=== PATIENT | male | born 1960 | race Caucasian/White ===

== ENCOUNTER → 2018-06-21 09:32 | Outpatient (CLI) | payer BC, SELFPAY ==
[2018-06-21 09:39] LABS: Bacteria 0 SEEN /hpf (None Seen); Mucous, Urine 0 SEEN /hpf (<or=2+); Squamous Epithelial Cells - UA 0 SEEN /hpf (0-5)
[2018-06-21 12:09] LABS: Absolute Lymphocyte Count 1.15 X10^3/ul (0.83-4.51); Absolute Neutrophil Count 3.6 X10^3/uL (2.0-7.7); Basophil# 0.02 X10^3/uL; Basophil% 0.3 % (0-1); Eosinophils% 1.7 % (0-5); Hematocrit 44.6 % (40-54); Hemoglobin 14.8 g/dl (13.0-16.5); Lymphocyte # 1.15 X10^3/ul (4.0); Mean Corp Hgb Conc 33.2 g/gl (32-36); Mean Corpuscular Hgb 32.1 pg (27.0-32.0); Mean Corpuscular Volume 96.7 fL (80-94); Mean Platelet Vol. 10.8 fl (6.2-12.0); Monocyte# 0.78 X10^3/uL; Monocyte% 13.5 % (0-10); Neutrophil # 3.63 X10^3/uL (2.7-7.7); Neutrophil % 63.1 % (47-70); Platelet Count 310 K/mm3 (150-450); Red Blood Count 4.61 M/mm3 (4.6-6.2); White Blood Count 5.8 K/mm3 (4.4-11.0)
[2018-06-21 12:13] LABS: POSITIVE COUNT NO; POSITIVE DIFFERENTIAL NO; POSITIVE MORPHOLOGY NO
[2018-06-21 12:34] LABS: ALB/GLOB Ratio 1.1 RATIO (0.9-2.4); AST(SGOT) 15 U/L (15-37); Alanine Aminotransfer ALT/SGPT 42 U/L (16-61); Alkaline Phosphatase 79 U/L (45-117); Anion Gap 12 (5-15); BUN 10 mg/dL (7-18); BUN/Creat Ratio 10.8 RATIO (10-20); Calcium,Total 9.1 mg/dL (8.5-10.1); Chloride 100 mmol/L (98-107); Creatinine, Serum 0.93 mg/dL (0.70-1.30); EST Glomerular Filtration Rate 89 mL/min (>60); Est Glom Filt Rate - Afr Amer 107 mL/min (>60); Globulin 3.8 g/dL (2.2-4.2); Glucose 132 mg/dL (74-106); PSA,Total - Annual Screen 0.56 ng/mL (0.00-4.00); Potassium 4.3 mmol/L (3.5-5.1); Protein, Total 7.8 g/dL (6.4-8.2); Sodium Level 138 mmol/L (136-145); Thyroid Stim Hormone (TSH) 3.02 uIU/mL (0.358-3.74)
[2018-06-21 14:05] LABS: Color, Urine Yellow (Yellow); Glucose, Dipstick Normal (Normal); Ketone-Dipstick Negative (Negative); Leukocyte Esterase-Dipstick 25 /ul (Negative); Nitrite-Dipstick Negative (Negative); Occult Blood-Urine Negative /ul (Negative); Protein-Dipstick 15 mg/dl (Negative); Urine Bilirubin Dipstick Negative (Negative); Urine Clarity Clear (Clear); Urine Urobilinogen Normal (Normal); Urine pH 6.5 (5.0 - 8.0)
[2018-06-21 14:27] LABS: Microalbumin,Random Urine 53.2 mg/L (NO RANGE EST.); Microalbumin:Creatinine Ratio 36.7 mg/g CRE (<30 mg/g CRE)
[2018-06-21 15:18] LABS: Immature Platelet Fraction 1.8 % (1.0-7.9); RET-HE 34.3 pg (30-35); Reticulocyte Count 1.25 % (0.5-1.5)
[2018-06-21 17:55] LABS: Red Blood Cells-Urine 0-5 SEEN /hpf (0-5); White Blood Cells 0-5 SEEN /hpf (0-5)
[2018-06-23 12:07] LABS: CHOLESTEROL TOTAL 192 mg/dL (100-199); HDL-C 52 mg/dL (>39); HDL-P TOTAL 41.4 umol/L (>=30.5); SMALL LDL-P 1007 nmol/L (<=527); TRIGLYCERIDES 182 mg/dL (0-149)
[2018-06-25 10:38] LABS: LDL-C 104 mg/dL (0-99)
[2018-06-25 10:39] LABS: LDL SIZE 20.3 nm (>20.5); LDL-P 1615 nmol/L (<1000); LP-IR SCORE ** 75 (<=45)
== END ==
PROVIDERS: Family Provider Internal Medicine; PCP Internal Medicine; Visit Provider Internal Medicine
DX: E11.65 Type 2 diabetes mellitus with hyperglycemia (principal); Z12.5 Encounter for screening for malignant neoplasm of prostate
CPT/HCPCS: 36415; 80053; 80061; 81001; 82043; 82570; 83704; 84153; 84443; 85025; 85045; G0103

== ENCOUNTER → 2018-07-16 06:39 | Outpatient (CLI) | payer BC, SELFPAY ==
--- NOTE | 2018-07-17 16:10 | PFTCOMP ---
COMPLETE PULMONARY FUNCTION TEST INTERPRETATION Brief HPI: Patient is a 58 year old male, currently under the care of myself, who presents to [place] for complete pulmonary function tests secondary to diagnosis of CHF. Respiratory therapist reports good effort and reproducible results. Interpretation: Forced expiration spirometry shows no large airways obstructive ventilatory defect with an FEV1 of 77% predicted. There is no significant bronchodilator response by strict ATS criteria. Spirograms are of good quality and plateau slowly, indicating slowly emptying areas of the lungs. The respiratory flow volume loop shows decreased expiratory flow rates at high lung volumes consistent with small airways obstruction. Lung volumes by body plethysmography show a normal total lung capacity at 5.75 L, 89% predicted. All other lung volumes are within normal limits. Diffusion capacity by carbon monoxide is decreased at 54% predicted. The airway resistance is slightly elevated. Compared to previous pulmonary function tests from 08/31/2015, there has been a significant reduction in lung volumes and DLCO by 35% and 38% respectively. Impression: These poorly function tests show an isolated reduction of diffusing capacity consistent with a pulmonary vascular disorder. There has been significant changes compared to previous studies.
--- NOTE | 2018-07-17 16:13 | PFTCOMP_ITS ---
COMPLETE PULMONARY FUNCTION TEST INTERPRETATION Brief HPI: Patient is a 58 year old male, currently under the care of myself, who presents to [facility] for complete pulmonary function tests secondary to diagnosis of CHF. Respiratory therapist reports good effort and reproducible results. Interpretation: Forced expiration spirometry shows no large airways obstructive ventilatory defect with an FEV1 of 77% predicted. There is no significant bronchodilator response by strict ATS criteria. Spirograms are of good quality and plateau slowly, indicating slowly emptying areas of the lungs. The respiratory flow volume loop shows decreased expiratory flow rates at high lung volumes consistent with small airways obstruction. Lung volumes by body plethysmography show a normal total lung capacity at 5.75 L, 89% predicted. All other lung volumes are within normal limits. Diffusion capacity by carbon monoxide is decreased at 54% predicted. The airway resistance is slightly elevated. Compared to previous pulmonary function tests from 08/31/2015, there has been a significant reduction in lung volumes and DLCO by 35% and 38% respectively. Impression: These poorly function tests show an isolated reduction of diffusing capacity consistent with a pulmonary vascular disorder. There has been significant changes compared to previous studies.
== END ==
PROVIDERS: Family Provider Internal Medicine; PCP Internal Medicine; Referring Provider Internal Medicine Critical Care Medicine; Visit Provider Internal Medicine Critical Care Medicine
DX: I50.32 Chronic diastolic (congestive) heart failure (principal)
CPT/HCPCS: 94060; 94726; 94729

== ENCOUNTER → 2018-07-17 20:00 | Outpatient (CLI) | payer BC, SELFPAY | PROVIDERS: Family Provider Internal Medicine; PCP Internal Medicine; Referring Provider Internal Medicine Critical Care Medicine; Visit Provider Internal Medicine Critical Care Medicine | DX: G47.33 Obstructive sleep apnea (adult) (pediatric) (principal) | CPT/HCPCS: 95811 ==

== ENCOUNTER → 2019-01-15 15:00 | Outpatient (CLI) | payer BC, SELFPAY ==
[2018-08-27 14:54] VITALS: BMI 35.7
[2019-01-15 15:56] LABS: Absolute Lymphocyte Count 2.25 X10^3/ul (0.83-4.51); Absolute Neutrophil Count 7.2 X10^3/uL (2.0-7.7); Basophil# 0.02 X10^3/uL; Basophil% 0.2 % (0-1); Eosinophil# 0.06 X10^3/uL; Eosinophils% 0.6 % (0-5); Hematocrit 46.8 % (40-54); Hemoglobin 16.1 g/dl (13.0-16.5); Lymphocyte # 2.25 X10^3/ul (4.0); Lymphocyte % 21.1 % (19-41); Mean Corp Hgb Conc 34.4 g/gl (32-36); Mean Corpuscular Hgb 32.3 pg (27.0-32.0); Mean Platelet Vol. 10.5 fl (6.2-12.0); Monocyte# 1.03 X10^3/uL; Monocyte% 9.6 % (0-10); Neutrophil % 67.4 % (47-70); Platelet Count 332 K/mm3 (150-450); RBC Distribution Width CV 12.7 % (11.6-14.6); RBC Distribution Width SD 42.7 fl (35.1-43.9); Red Blood Count 4.98 M/mm3 (4.6-6.2); White Blood Count 10.7 K/mm3 (4.4-11.0)
[2019-01-15 16:12] LABS: Anion Gap 8 (5-15); BUN 9 mg/dL (7-18); BUN/Creat Ratio 11.1 RATIO (10-20); Calcium,Total 9.7 mg/dL (8.5-10.1); Chloride 102 mmol/L (98-107); Creatinine, Serum 0.81 mg/dL (0.70-1.30); EST Glomerular Filtration Rate 104 mL/min (>60); Est Glom Filt Rate - Afr Amer 126 mL/min (>60); Glucose 131 mg/dL (74-106); Potassium 4.4 mmol/L (3.5-5.1); Sodium Level 133 mmol/L (136-145)
[2019-01-15 16:59] LABS: POSITIVE COUNT NO; POSITIVE DIFFERENTIAL NO; POSITIVE MORPHOLOGY NO
== END ==
PROVIDERS: Family Provider Internal Medicine; PCP Internal Medicine; Referring Provider Nurse Practitioner Family; Visit Provider Nurse Practitioner Family
DX: I48.0 Paroxysmal atrial fibrillation (principal); I48.92 Unspecified atrial flutter; I50.30 Unspecified diastolic (congestive) heart failure
CPT/HCPCS: 36415; 80048; 85025

== ENCOUNTER 2019-01-15 16:13 | Emergency (ER) | payer BC, SELFPAY ==
[2018-08-27 14:54] VITALS: BMI 35.7
[2019-01-15] VITALS (9 sets, daily range): BP systolic 112–160; BP diastolic 72–120; PULSE 93–158; RESP 14–23; TEMP 36.9; O2SAT 95–98; BMI 37.9
--- NOTE | 2019-01-15 16:24 | EKG12_ITS ---
Test Reason : SVT Blood Pressure : / mmHG Vent. Rate : 156 BPM Atrial Rate : 312 BPM P-R Int : 000 ms QRS Dur : 088 ms QT Int : 308 ms P-R-T Axes : 000 023 083 degrees QTc Int : 496 ms Atrial flutter with 2:1 A-V conduction Abnormal ECG Confirmed by DELPHINE GRISSOM, DANIEL ([id number]), advertising editor DG PRESTON ([id number]) on 01/17/2019 9:18:45 AM Referred By: Maximus Guerra Confirmed By:DANIEL AKERS MD
[2019-01-15] MEDS: Adenosine 6 MG/2 ML Syringe 12 MG IV (16:49)
--- NOTE | 2019-01-15 17:26 | ED.VISSUMM ---
- ER Visit Summary Date of Service: 01/15/19 Chief Complaint: Palpitations History of Present Illness: The patient is a 58 M presenting with palpitations. Patient states this started last night. He woke up with continued symptoms. He denies chest pain or shortness of breath. He has a history of atrial dysrhythmias. He had an ablation a year ago. He is on Xarelto and Cardizem. He went to Dr. Chen's office and was sent to the ED for further evaluation. Physical Examination: Vitals are stable. Heart rate 158. Patient is afebrile. Alert no acute distress. HEENT exam is unremarkable. Neck is supple. Lungs are clear and equal bilaterally. Heart is regular and tachycardic. Abdomen is soft nontender nondistended. Extremities are unremarkable. Skin is warm and dry. No focal neurologic deficit. Remainder of exam is unremarkable. Emergency Department Course and Treatment: EKG atrial flutter with 2-1 AV conduction. Outpatient blood work showed CBC unremarkable, chemistries normal except for sodium 133, glucose 131. Discussed with Dr. Chen. Patient was initially given adenosine. His rate slowed and flutter waves were visible. His heart rate then returned to the 150s. He was consented for procedural sedation. He was given propofol. Synchronized cardioversion with 200 J was performed. Patient converted to sinus rhythm. Repeat EKG is sinus rhythm rate of 94. Discussed with Dr. Chen patient will follow-up in the office. Patient is agreeable with this plan. Advised return to ED if worsening complaints. Disposition: Discharge home Impression: Atrial flutter, procedural sedation, synchronized cardioversion This note was generated with [employer] dictation software. It may contain incorrect words, spelling, and punctuation that were not noted in review of the chart prior to signing ED Disposition - Plan for ED Patient: Referrals: Kyra Cruz DO [Primary Care Provider] -
--- NOTE | 2019-01-15 17:31 | ED.DCSUM_ITS ---
- ER Visit Summary Date of Service: 01/15/19 Chief Complaint: Palpitations History of Present Illness: The patient is a 58 M presenting with palpitations. Patient states this started last night. He woke up with continued symptoms. He denies chest pain or shortness of breath. He has a history of atrial d ysrhythmias. He had an ablation a year ago. He is on Xarelto and Cardizem. He went to Dr. Chen's office and was sent to the ED for further evaluation. Physical Examination: Vitals are stable. Heart rate 158. Patient is afebrile. Alert no acute distress. HEENT exam is unremarkable. Neck is supple. Lungs are clear and equal bilaterally. Heart is regular and tachycardic. Abdomen is soft nontender nondistended. Extremities are unremarkable. Skin is warm and dry. No focal neurologic deficit. Remainder of exam is unremarkable. Emergency Department Course and Treatment: EKG atrial flutter with 2-1 AV conduction. Outpatient blood work showed CBC unremarkable, chemistries normal except for sodium 133, glucose 131. Discussed with Dr. Chen. Patient was initially given adenosine. His rate slowed and flutter waves were visible. His heart rate then returned to the 150s. He was consented for procedural sedation. He was given propofol. Synchronized cardioversion with 200 J was performed. Patient converted to sinus rhythm. Repeat EKG is sinus rhythm rate of 94. Discussed with Dr. Chen patient will follow-up in the office. Patient is agreeable with this plan. Advised return to ED if worsening complaints. Disposition: Discharge home Impression: Atrial flutter, procedural sedation, synchronized cardioversion This note was generated with [employer] dictation software. It may contain incorrect words, spelling, and punctuation that were not noted in review of the chart prior to signing ED Disposition - Plan for ED Patient: Referrals: Kyra Cruz DO [Primary Care Provider] -
--- NOTE | 2019-01-15 17:31 | ED.DEP ---
ED Disposition - Plan for ED Patient: Instructions: ED Paroxysmal Atrial Flutter Referrals: Kyra Cruz DO [Primary Care Provider] - Dionicio Chen MD [STAFF PHYSICIAN] -
--- NOTE | 2019-01-15 17:39 | EKG12_ITS ---
Test Reason : CARDIOVERSION Blood Pressure : / mmHG Vent. Rate : 094 BPM Atrial Rate : 094 BPM P-R Int : 140 ms QRS Dur : 080 ms QT Int : 334 ms P-R-T Axes : 039 033 061 degrees QTc Int : 417 ms Normal sinus rhythm Normal ECG Confirmed by DELPHINE GRISSOM, DANIEL ([id number]), editor at large DG PRESTON ([id number]) on 01/17/2019 9:19:05 AM Referred By: Maximus Guerra Confirmed By:DANIEL AKERS MD
== END 2019-01-15 17:47 | disposition home or self-care (01) ==
PROVIDERS: Emergency Provider Emergency Medicine; Family Provider Internal Medicine; PCP Internal Medicine
DX: I48.92 Unspecified atrial flutter (principal); I10 Essential (primary) hypertension; E78.00 Pure hypercholesterolemia, unspecified; Z79.02 Long term (current) use of antithrombotics/antiplatelets; Z79.899 Other long term (current) drug therapy
CPT/HCPCS: 92960; 93005; 96374; 99284; J7030; A4216; J0153

== ENCOUNTER 2019-05-09 14:37 | Emergency (ER) | payer BC, SELFPAY ==
[2019-05-08 13:05] VITALS: BMI 34.9
[2019-05-09 14:38] VITALS: BP 116/106; PULSE 155; RESP 17; TEMP 37.7; O2SAT 98; BMI 35.2
--- NOTE | 2019-05-09 14:53 | ED.RN ---
1438.. dr notified that pt from dr quiros in here and in room 1. hr 156. [id number]. tank charger informs physicians that pt is here
--- NOTE | 2019-05-09 14:57 | EKG12_ITS ---
Test Reason : POST CARDIOVERSION Blood Pressure : / mmHG Vent. Rate : 098 BPM Atrial Rate : 098 BPM P-R Int : 150 ms QRS Dur : 080 ms QT Int : 336 ms P-R-T Axes : 019 007 038 degrees QTc Int : 428 ms Normal sinus rhythm Septal infarct , age undetermined Abnormal ECG Confirmed by GARY CERVANTES ([id number]), newspaper or periodical editor LLUVIA WESLEY ([id number]) on 05/13/2019 1:21:40 PM Referred By: MANUEL Confirmed By:GARY CERVANTES
[2019-05-09 15:01] VITALS: BP 136/77; PULSE 152; RESP 12; O2SAT 96
--- NOTE | 2019-05-09 15:01 | ED.VIS.GEN ---
History of Present Illness Chief Complaint: Palpitations Informant: Patient Onset: Today Context: Sudden Onset Timing: Continuous Quality: Rapid heartbeat Location: Mid chest Current Severity: Mild Maximum Severity: Moderate Worsened by: Nothing Relieved by: Nothing Associated Symptoms: No associated symptoms Narrative: Patient is a middle-age male who presents with rapid heartbeat from Dr. Chen's office. He is on Xarelto. He has been [place] in the past. He has not had any to eat since noon. He has had nothing to drink since 1230. He denies allergy to egg products or soy products. He does have history of hypertension. Denies history of thyroid disease. He denies chest pain, dyspnea, dyspnea exertion. He denies orthopnea or PND. He denies swelling of his feet or legs. 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 (7) Pulmonary hypertension Status: Chronic (8) Pure hypercholesterolemia Status: Chronic (9) Type 2 diabetes mellitus Status: Chronic Past Medical History - Allergies and Home Meds Allergies/Adverse Reactions: Allergies lorazepam Allergy (Verified 05/09/19 14:38) Unknown niacin Allergy (Verified 05/09/19 14:38) Unknown Primary Care Physician: Ravin Granda MD [Primary Care Provider] - Prior records reviewed: Yes Lives: Alone Smoking Status: Former smoker Alcohol: Rare Drugs: None - Family History Paternal Family History: Family History (Last Reviewed 05/08/19 @ 13:07 by Argenis Akins) Father CAD (coronary artery disease) Myocardial infarction Mother Diabetes Brother Hypertension Other Breast cancer High cholesterol Skin cancer Family History: Reports: Heart Disease - Atrial Fibrillation, CAD, RI, PCI Review of Systems General: Denies: Chills, Fever, Sweats Eyes: Denies: Visual changes - bilaterally, Diplopia ENT: Denies: Bilateral ear pain, Rhinorrhea, Sore throat Cardiovascular: Reports: Palpitations, Heart racing Respiratory: Denies: Dyspnea, Cough, Dyspnea on exertion Gastrointestinal: Denies: Abdominal pain, Nausea, Vomiting, Diarrhea, Melena, Hematochezia Genitourinary: Denies: Dysuria, Hematuria, Frequency Musculoskeletal: Denies: Back pain, Extremity Pain Skin: Denies: Rash, Wounds Neurological: Denies: Headache, Weakness, Numbness Psych: Denies: Depression, Anxiety Hematologic: Denies: Easy bruising, Easy bleeding Allergy: Denies: Uticaria, Swelling of the mouth Physical Exam Vital Signs/Narrative: Vital Signs Temp Pulse Resp BP Pulse Ox 05/09/19 14:38 99.8 F H 155 H 17 116/106 H 98 Inital Vital Signs reviewed: Yes General: Well nourished, Well developed, No Acute Distress Head: Normocephalic, Atraumatic Eyes: Perrl, EOMI ENT: Moist mucous membranes, No rhinorrhea Neck: Supple, Nontender Cardiovascular: Regular rhythm, No murmurs, Normal S1, Tachycardia Respiratory: No distress, CTA bilaterally, Chest nontender Abdomen: Soft, Nontender, Nondistended, Normal bowel sounds Back: Nontender, Normal Inspection Extremities: Nontender, No edema Skin: Normal color, No rash Neurological: Alert, Oriented x3, Cranial nerves II-XII grossly intact, Normal Strength, Normal Sensation Psychological: Normal affect, Normal Mood Diagnostic/Tx/Re-eval Laboratory Results 05/09/19 05/09/19 14:45 14:45 WBC 10.8 RBC 5.25 Hgb 17.1 H Hct 49.8 MCV 94.9 H MCH 32.6 H MCHC 34.3 RDW Std Deviation 46.0 H RDW Coeff of Chuy 13.0 Plt Count 348 MPV 9.9 Sodium 136 Potassium 4.3 Chloride 102 Carbon Dioxide 24.0 Anion Gap 10 BUN 10 Creatinine 0.79 Estim Creat Clear Calc 103.96 Est GFR (MDRD) Af Amer 128 Est GFR (MDRD) Non-Af 106 BUN/Creatinine Ratio 12.6 Glucose 107 H Calcium 9.4 Troponin I < 0.015 - Rhythm Strip Rhythm Strip: Narrow complex tachycardia rate 152 Rate: 152 - EKG Initial EKG Interpretation: Atrial Flutter - Ventricular rate is 152. Decreased anterior force. QRS duration 90 ms. QT duration 330 ms. Martin is normal. Follow-up EKG Interpretation: Sinus Rhythm - Ventricular rate is 98. MN interval is 150 ms. QRS duration 80 ms. QT duration 336 ms. Martin is normal. There is decreased anterior force. Otherwise the EKG is unremarkable. - Medical Decision Making Patient presents with palpitations. He has been cardioverted in the past. His blood pressure is lower than normal. He has no other symptoms. Will obtain screening labs per Dr. Chen's request. Patient has been consented for procedural sedation and cardioversion. He was given opportunity ask questions. He had none. He states he has been cardioverted in the past x2. Procedures Procedure(s): 1. Patient was consented for deep procedural sedation using propofol. He was given obtained to ask questions. He states he has had this performed twice before. He denies allergy to egg or soy products. He does have history obstructive sleep apnea. 2. Patient was consented for cardioversion. He states he was cardioverted in December. 3. Patient initially received 80 mg of propofol followed by 20 mg of propofol. He was given an additional 70 mg of propofol. Once appropriate depth of anesthesia/unconsciousness was achieved he was successfully cardioverted with 150 J. Obtaining post cardioversion EKG. He did not become hypoxic during procedural sedation. 4. Total time for procedure 5 minutes, 1511?1516 ED Disposition - Plan for ED Patient: Disposition: Home or Assisted Living Diagnosis: Atrial flutter with rapid ventricular response Instructions: Atrial Flutter Referrals: Ravin Granda MD [Primary Care Provider] - Dionicio Chen MD [STAFF PHYSICIAN] - 5-7 Days
[2019-05-09 15:10] VITALS: BP 124/78; PULSE 149; RESP 26; O2SAT 94
[2019-05-09 15:10] LABS: Hematocrit 49.8 % (40-54); Hemoglobin 17.1 g/dL (13.0-16.5); Mean Corp Hgb Conc 34.3 g/dL (32-36); Mean Corpuscular Hgb 32.6 pg (27.0-32.0); Mean Corpuscular Volume 94.9 fL (80-94); Mean Platelet Vol. 9.9 fl (6.2-12.0); Platelet Count 348 K/mm3 (150-450); Red Blood Count 5.25 M/mm3 (4.6-6.2); White Blood Count 10.8 K/mm3 (4.4-11.0)
[2019-05-09 15:20] VITALS: BP 108/61; BP 115/62; PULSE 93; RESP 14; O2SAT 96
[2019-05-09 15:27] LABS: Anion Gap 10 (5-15); BUN 10 mg/dL (7-18); BUN/Creat Ratio 12.6 RATIO (10-20); Calcium,Total 9.4 mg/dL (8.5-10.1); Chloride 102 mmol/L (98-107); Creatinine, Serum 0.79 mg/dL (0.70-1.30); EST Glomerular Filtration Rate 106 mL/min (>60); Est Glom Filt Rate - Afr Amer 128 mL/min (>60); Estimated Creatinine Clearance 103.96 ml/min; Glucose 107 mg/dL (74-106); Potassium 4.3 mmol/L (3.5-5.1); Sodium Level 136 mmol/L (136-145)
[2019-05-09] MEDS: Propofol 200 MG/20 ML Vial IV BOLUS (15:49)
[2019-05-09 15:50] VITALS: BP 133/65; PULSE 82; RESP 18; O2SAT 97
--- NOTE | 2019-05-09 16:46 | EKG12_ITS ---
Test Reason : PALPITATIONS Blood Pressure : / mmHG Vent. Rate : 152 BPM Atrial Rate : 150 BPM P-R Int : 000 ms QRS Dur : 090 ms QT Int : 330 ms P-R-T Axes : 000 025 088 degrees QTc Int : 524 ms Supraventricular tachycardia Otherwise normal ECG Confirmed by GARY CERVANTES ([id number]), editor publications LLUVIA WESLEY ([id number]) on 05/13/2019 1:22:07 PM Referred By: JODI Confirmed By:GARY CERVANTES
[2019-05-09 16:51] VITALS: BP 126/65; PULSE 86; RESP 17; O2SAT 96
== END 2019-05-09 16:52 | disposition home or self-care (01) ==
PROVIDERS: Emergency Provider Emergency Medicine; Family Provider Internal Medicine; PCP Internal Medicine
DX: I48.92 Unspecified atrial flutter (principal); I11.0 Hypertensive heart disease with heart failure; I50.32 Chronic diastolic (congestive) heart failure; G47.33 Obstructive sleep apnea (adult) (pediatric); I27.20 Pulmonary hypertension, unspecified; E78.00 Pure hypercholesterolemia, unspecified; E11.9 Type 2 diabetes mellitus without complications; Z79.01 Long term (current) use of anticoagulants; Z79.84 Long term (current) use of oral hypoglycemic drugs; Z79.899 Other long term (current) drug therapy; Z87.891 Personal history of nicotine dependence
CPT/HCPCS: 80048; 84484; 85027; 92960; 93005; 99284; J7030; A4216

== ENCOUNTER → 2019-05-22 | Outpatient (CLI) | payer BC, SELFPAY ==
[2019-05-09 14:38] VITALS: BMI 35.2
[2019-05-22 10:23] LABS: AST(SGOT) 20 U/L (15-37); Alanine Aminotransfer ALT/SGPT 46 U/L (16-61); Albumin, Serum 3.8 g/dL (3.2-5.0); Alkaline Phosphatase 90 U/L (45-117); Bilirubin, Direct 0.17 mg/dL (0.00-0.30); Cholesterol 150 mg/dL (200); Globulin 3.7 g/dL (2.2-4.2); High Density Lipoprotein 45 mg/dL; Protein, Total 7.5 g/dL (6.4-8.2); Triglycerides 191 mg/dL; Very Low Density Lipoprotein 38 mg/dL (5-40)
== END | disposition home or self-care (01) ==
LOC: MTLAB 08:07
PROVIDERS: Family Provider Internal Medicine; PCP Internal Medicine; Referring Provider Internal Medicine Cardiovascular Disease; Visit Provider Internal Medicine Cardiovascular Disease
DX: E78.00 Pure hypercholesterolemia, unspecified (principal)
CPT/HCPCS: 36415; 80061; 80076

== ENCOUNTER → 2019-06-04 | Outpatient (CLI) | payer BC, SELFPAY ==
[2019-05-24 10:57] VITALS: BMI 34.5
--- NOTE | 2019-06-04 11:41 | STRESSREP_ITS ---
Stress Test Report Date: 06-04-19 Procedure: Exercise tolerance test/imaging study Indications: Chest pain; paroxysmal atrial fibrillation/flutter Consent: Per the patient Procedure: The patient exercised on a Rubén protocol for 7 minutes completing stage II and 1 minute of stage III achieving a peak heart rate of 140 bpm (87 % predicted maximal heart rate) with a peak blood pressure 198/74 mmHg and a peak MET capacity of 8 METs. The baseline ECG demonstrated normal sinus rhythm. The peak exercise ECG demonstrated no obvious ECG changes. There were no cardiac dysrhythmias pretest, during exercise, or recovery. The functional capacity was considered average. There was no complaint of chest discomfort during exercise or recovery. The examination was discontinued secondary to dyspnea. Impression: 1. Technically adequate (percent predicted maximal heart rate greater than 85%) exercise tolerance test 2. Peak exercise ECG with no obvious ECG changes 3. There were no cardiac dysrhythmias pretest, during exercise, or recovery 4. Nuclear images pending Myocardial perfusion imaging study: Technique: The patient was injected with 14.6 mCi of technetium 99m Cardiolite and subsequently rest SPECT Cardiolite nuclear imaging was obtained in the horizontal long, vertical long, and short axis views. The patient exercised on a Rubén protocol for 7 minutes completing stage II and 1 minute of stage III achieving a peak heart rate of 140 bpm (87 % predicted maximal heart rate) with a peak blood pressure 198/74 mmHg and a peak MET capacity of 8 METs. The patient was injected with 44.7 mCi of technetium 99m Cardiolite and subsequently stress SPECT Cardiolite nuclear imaging was obtained in the horizontal long, vertical long, and short axis views. A gated Cardiolite study at peak stress was obtained. Interpretation: Rest and stress SPECT Cardiolite nuclear imaging status post realignment, normalization, and attenuation correction, demonstrates the appearance of relative uniform tracer uptake and myocardial perfusion appearing within normal limits. There is end systolic thickening and brightening. The gated Cardiolite study demonstrates myocardial thickening and inward wall motion. The reported LVEF is 82 %. Impression: 1. Rest and stress SPECT Cardiolite nuclear imaging demonstrate relative uniform tracer uptake and myocardial perfusion appearing within normal limits. 2. The gated Cardiolite study reports an LVEF of 82 %. This note was generated with [employer] software. It may contain incorrect words, spelling, and punctuation that were not noted in checking the note before signing.
== END | disposition home or self-care (01) ==
LOC: CVS 06:19
PROVIDERS: Family Provider Internal Medicine; PCP Internal Medicine; Referring Provider Internal Medicine Cardiovascular Disease; Visit Provider Internal Medicine Cardiovascular Disease
DX: R07.9 Chest pain, unspecified (principal); I48.92 Unspecified atrial flutter
CPT/HCPCS: 78452; 93017; A9500; A4216

== ENCOUNTER → 2021-01-22 08:50 | Outpatient (CLI) | payer BC, SELFPAY ==
[2021-01-22 12:40] LABS: Absolute Lymphocyte Count 1.49 X10^3/uL (0.83-4.51); Absolute Neutrophil Count 4.3 X10^3/uL (2.0-7.7); Basophil# 0.03 X10^3/uL; Basophil% 0.4 % (0-1); Eosinophil# 0.14 X10^3/uL; Eosinophils% 2.1 % (0-5); Hematocrit 46.3 % (40-54); Hemoglobin 14.9 g/dL (13.0-16.5); Lymphocyte # 1.49 X10^3/ul (0.83-4.51); Lymphocyte % 21.9 % (19-41); Mean Corp Hgb Conc 32.2 g/dL (32-36); Mean Corpuscular Hgb 32.3 pg (27.0-32.0); Mean Corpuscular Volume 100.4 fL (80-94); Mean Platelet Vol. 10.4 fl (6.2-12.0); Monocyte# 0.76 X10^3/uL; Monocyte% 11.2 % (0-10); NRBC Flagged by Analyzer 0 % (0-5); Neutrophil # 4.28 X10^3/uL (2.7-7.7); Neutrophil % 62.9 % (47-70); Platelet Count 324 K/mm3 (150-450); RBC Distribution Width CV 12.4 % (11.6-14.6); RBC Distribution Width SD 45.9 fl (35.1-43.9); Red Blood Count 4.61 M/mm3 (4.6-6.2); White Blood Count 6.8 K/mm3 (4.4-11.0)
[2021-01-22 12:54] LABS: ALB/GLOB Ratio 1.2 RATIO (0.9-2.4); AST(SGOT) 20 U/L (15-37); Alanine Aminotransfer ALT/SGPT 45 U/L (16-61); Albumin, Serum 4.1 g/dL (3.2-5.0); Alkaline Phosphatase 84 U/L (45-117); Anion Gap 7 (5-15); BUN 10 mg/dL (7-18); BUN/Creat Ratio 12.6 RATIO (10-20); Calcium,Total 9.4 mg/dL (8.5-10.1); Chloride 100 mmol/L (98-107); Creatinine, Serum 0.79 mg/dL (0.70-1.30); EST Glomerular Filtration Rate 106 mL/min (>60); Est Glom Filt Rate - Afr Amer 128 mL/min (>60); Globulin 3.5 g/dL (2.2-4.2); Glucose 139 mg/dL (74-106); Protein, Total 7.6 g/dL (6.4-8.2); Sodium Level 135 mmol/L (136-145)
== END ==
PROVIDERS: PCP Internal Medicine; Referring Provider Internal Medicine; Visit Provider Internal Medicine
DX: I10 Essential (primary) hypertension (principal); E11.9 Type 2 diabetes mellitus without complications
CPT/HCPCS: 36415; 80053; 85025

== ENCOUNTER → 2021-01-26 08:30 | Outpatient (CLI) | payer BC, SELFPAY ==
[2021-01-26 13:05] LABS: Vitamin B12 451 pg/mL (211-911)
== END ==
PROVIDERS: PCP Internal Medicine; Referring Provider Internal Medicine; Visit Provider Internal Medicine
DX: D64.9 Anemia, unspecified (principal)
CPT/HCPCS: 36415; 82607

== ENCOUNTER → 2021-02-19 07:43 | Outpatient (CLI) | payer BC, SELFPAY ==
--- NOTE | 2021-02-19 07:46 | US_ITS ---
STUDY: ABDOMINAL ULTRASOUND - RIGHT UPPER QUADRANT REASON FOR VISIT: Male, 60 years old RUQ Pain x2 months TECHNIQUE: Ultrasound evaluation of the right upper quadrant was performed with real-time and static duron-scale imaging. TECHNICAL QUALITY: Adequate. COMPARISON: None. FINDINGS: Liver: The liver measures 23.97 cm. There is increased echogenicity consistent with fatty infiltration. The bile ducts are within normal limits. There is hepatic color flow. The direction of portal flow is hepatopetal. There is no demonstrated mass lesion. Gallbladder: Normal distended gallbladder. The gallbladder wall measures 2.8 mm. There is a negative sonographic Oquendo''s sign. There is no pericholecystic fluid. There are no gallstones. Common Bile Duct (C.B.D.): The common bile duct measures 2.7 mm. Pancreas: Normal size of the head, body and tail of the pancreas. There is increased echogenicity of the pancreas. There is no demonstrated pancreatic mass or cyst. Right Kidney: Normal size of the right kidney. The right kidney measures 13.3 x 6.5 x 6.2 cm. Normal renal cortex. The right cortex measures 2.1 cm. There is no demonstrated renal mass or cyst. There is no right hydronephrosis. US/Abdomen Limited IMPRESSION: Hepatomegaly with diffuse fatty alteration of the liver, no discrete lesion Sonographically normal gallbladder Nonspecific echogenic pancreas Electronically Signed: López Saenz MD at 8:52 EDT , Service support ,
== END ==
PROVIDERS: PCP Internal Medicine; Referring Provider Internal Medicine; Visit Provider Internal Medicine
DX: R10.11 Right upper quadrant pain (principal)
CPT/HCPCS: 76705

== ENCOUNTER → 2021-05-24 09:31 | Outpatient (CLI) | payer BC, SELFPAY ==
[2021-05-24 12:25] LABS: AST(SGOT) 23 U/L (15-37); Alanine Aminotransfer ALT/SGPT 50 U/L (16-61); Albumin, Serum 4.2 g/dL (3.2-5.0); Alkaline Phosphatase 88 U/L (45-117); Bilirubin, Direct 0.14 mg/dL (0.00-0.30); Cholesterol 184 mg/dL (200); Globulin 3.6 g/dL (2.2-4.2); High Density Lipoprotein 54 mg/dL; Protein, Total 7.8 g/dL (6.4-8.2); Triglycerides 193 mg/dL; Very Low Density Lipoprotein 39 mg/dL (5-40)
== END ==
PROVIDERS: PCP Internal Medicine; Referring Provider Internal Medicine Cardiovascular Disease; Visit Provider Internal Medicine Cardiovascular Disease
DX: E78.1 Pure hyperglyceridemia (principal); E78.00 Pure hypercholesterolemia, unspecified; E11.9 Type 2 diabetes mellitus without complications
CPT/HCPCS: 36415; 80061; 80076

== ENCOUNTER 2021-10-04 10:52 | Outpatient (CLI) | payer BC, SELFPAY ==
[2021-10-04 12:43] LABS: Anion Gap 8 (5-15); BUN 13 mg/dL (7-18); BUN/Creat Ratio 16.6 RATIO (10-20); Calcium,Total 10.3 mg/dL (8.5-10.1); Chloride 104 mmol/L (98-107); Creatinine, Serum 0.78 mg/dL (0.70-1.30); EST Glomerular Filtration Rate 107 mL/min (>60); Est Glom Filt Rate - Afr Amer 130 mL/min (>60); Glucose 146 mg/dL (74-106); Potassium 4.8 mmol/L (3.5-5.1); Sodium Level 136 mmol/L (136-145)
== END 2021-10-04 23:59 | disposition short-term general hospital (02) ==
LOC: BIMLAB 10:52
PROVIDERS: PCP Internal Medicine; Referring Provider Internal Medicine; Visit Provider Internal Medicine
DX: I10 Essential (primary) hypertension (principal)
CPT/HCPCS: 36415; 80048

== ENCOUNTER → 2022-08-02 | Outpatient (CLI) | payer BC, SELFPAY ==
[2022-08-02 12:32] LABS: AST(SGOT) 14 U/L (15-37); Alanine Aminotransfer ALT/SGPT 37 U/L (16-61); Albumin, Serum 3.8 g/dL (3.2-5.0); Alkaline Phosphatase 76 U/L (45-117); Bilirubin, Direct 0.15 mg/dL (0.00-0.30); Cholesterol 164 mg/dL (200); Globulin 3.6 g/dL (2.2-4.2); High Density Lipoprotein 51 mg/dL; Protein, Total 7.4 g/dL (6.4-8.2); Triglycerides 135 mg/dL; Very Low Density Lipoprotein 27 mg/dL (5-40)
== END | disposition home or self-care (01) ==
LOC: BIMLAB 10:21
PROVIDERS: PCP Internal Medicine; Visit Provider Internal Medicine Cardiovascular Disease
DX: E78.00 Pure hypercholesterolemia, unspecified (principal)
CPT/HCPCS: 36415; 80061; 80076

== ENCOUNTER → 2023-02-22 | Outpatient (CLI) | payer BC, SELFPAY ==
[2023-02-22 12:34] LABS: Absolute Lymphocyte Count 1.65 X10^3/uL (0.83-4.51); Absolute Neutrophil Count 4.3 X10^3/uL (2.0-7.7); Basophil# 0.04 X10^3/uL; Basophil% 0.6 % (0-1); Eosinophil# 0.17 X10^3/uL; Eosinophils% 2.4 % (0-5); Hematocrit 42.7 % (40-54); Hemoglobin 14.1 g/dL (13.0-16.5); Lymphocyte # 1.65 X10^3/ul (0.83-4.51); Lymphocyte % 23.4 % (19-41); Mean Corpuscular Hgb 32.3 pg (27.0-32.0); Mean Corpuscular Volume 97.7 fL (80-94); Mean Platelet Vol. 10.4 fl (6.2-12.0); Monocyte# 0.81 X10^3/uL; Monocyte% 11.5 % (0-10); NRBC Flagged by Analyzer 0 % (0-5); Neutrophil % 61.1 % (47-70); Platelet Count 330 K/mm3 (150-450); RBC Distribution Width SD 46.5 fl (35.1-43.9); Red Blood Count 4.37 M/mm3 (4.6-6.2)
[2023-02-22 12:51] LABS: AST(SGOT) 23 U/L (15-37); Alanine Aminotransfer ALT/SGPT 37 U/L (16-61); Albumin, Serum 3.8 g/dL (3.2-5.0); Alkaline Phosphatase 104 U/L (45-117); Bilirubin, Direct 0.16 mg/dL (0.00-0.30); Cholesterol 170 mg/dL (200); Globulin 3.3 g/dL (2.2-4.2); High Density Lipoprotein 50 mg/dL; Protein, Total 7.1 g/dL (6.4-8.2); Triglycerides 167 mg/dL; Very Low Density Lipoprotein 33 mg/dL (5-40)
[2023-02-22 13:08] LABS: Anion Gap 9 (5-15); BUN 8 mg/dL (7-18); BUN/Creat Ratio 11.5 RATIO (10-20); Calcium,Total 9.5 mg/dL (8.5-10.1); Chloride 104 mmol/L (98-107); Creatinine, Serum 0.69 mg/dL (0.70-1.30); EST Glomerular Filtration Rate 122 mL/min (>60); Est Glom Filt Rate - Afr Amer 148 mL/min (>60); Glucose 148 mg/dL (74-106); Potassium 4.8 mmol/L (3.5-5.1); Sodium Level 137 mmol/L (136-145)
[2023-02-22 13:34] LABS: Uric Acid 5.5 mg/dL (3.5-7.2)
== END | disposition home or self-care (01) ==
LOC: BIMLAB 10:36
PROVIDERS: Internal Medicine Cardiovascular Disease; PCP Internal Medicine; Referring Provider Internal Medicine; Visit Provider Internal Medicine
DX: I10 Essential (primary) hypertension (principal); E78.00 Pure hypercholesterolemia, unspecified; M10.9 Gout, unspecified
CPT/HCPCS: 36415; 80048; 80061; 80076; 84550; 85025

== ENCOUNTER → 2023-10-06 | Outpatient (CLI) | payer OTHER, SELFPAY ==
--- OUTSIDE RECORDS SUMMARY | 2023-10-06 11:53 | XMS RPT_ITS | CCD ---
Author Name Unknown Address [address] [place] [address] Organization [facility] Care Team Providers Care Automatic Lathe Operator Name Role Phone Mirela Flower Unavailable Unavailable Mirela Flower Unavailable Unavailable Mirela Flower Unavailable Unavailable Mirela Flower Unavailable Unavailable Mirela Flower Unavailable Unavailable Kyra Cruz Unavailable VelJaleesa sharpema Unavailable Shannan Alvarenga Unavailable Fast, Dena A Unavailable Terrence Cali Unavailable Jigar Bills Unavailable Unavailable Messenger, Maira Unavailable Unavailable Unavailable Unavailable Mirela Flower Unavailable Unavailable MITRA Borjas, Petra Olguin Unavailable Unavailmandeep Chen MD, Dionicio Willett Unavailable Kyra Cruz Unavailable Mariano, Angy Unavailable Shannan Alvarenga Unavailable Fast, Dena A Unavailable Terrence Cali Unavailable Jigar Bills Unavailable Unavailable Messenger, Maira Unavailable Unavailable Unavailable Unavailable Allergies Allergy Classification Reported Allergen(s) Allergy Type Date of Onset Reaction(s) Facility (8 sources) LORazepam drug allergy 5 [facility] Work Phone: (8 sources) niacin drug allergy 5 Hives [facility] Work Phone: (2 sources) ezetimibe; Translations: [Zetia *ANTIHYPERLIPIDE MICS*] Drug Allergy [facility] Work Phone: Medications Completed/Discontinued Medications Medication Drug Class(es) Dates Sig (Normalized) Sig (Original) allopurinol 300 mg oral tablet (10 sources) Xanthine Oxidase Inhibitor Start: 06-06-2018 take 1 tablet by mouth once daily Allopurinol 300 MG Oral Tablet 1 (one) Tablet QD for 0 days Quantity: 90 {Tablet} Refills: 3 Ordered: 06-Jun-2018 Kyra Cruz DO, DO, Kathleen Start : 06-Jun-2018 Active Comments: Mail order. 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; Translations: [Acute drug-induced gout of knee] Resolved: 05-15-2017 05-15-2017 Allergic reactions (2 sources) Urticaria; Translations: [Hives] Resolved: 05-15-2017 05-15-2017 Episodic Results Test Name Value Interpretation Reference Range Facil ity Vital Signs Date Time Vital Sign Value Performing Clinician Facility 09-10-2018 11:45-0500 BMI (Body Mass Index) 35.97 kg/m2 Kyra Nguyen [facility] Work Phone: 09-10-2018 11:45-0500 Body weight 112.1 kg [facility] Work Phone: 09-10-2018 11:45-0500 BP Diastolic 82 mm[Hg] [facility] Work Phone: Encounters Encounter Date Encounter Type Care Provider Facility Start: 09-10-2018 End: 09-10-2018 Office outpatient visit 25 minutes [facility] Start: 07-06-2018 End: 07-06-2018 Phone Encounter Ky[facility] Nguyen [facility] Start: 06-26-2018 End: 06-26-2018 Phone Encounter Ky[facility] Nguyen [facility] Start: 06-21-2018 End: 06-21-2018 Lab Order Kyra Nguyen [facility] Start: 06-20-2018 End: 06-21-2018 Office outpatient visit 25 minutes [facility] Start: 08-30-2017 End: 08-30-2017 Office outpatient visit 15 minutes [facility] Start: 07-03-2017 End: 07-03-2017 Office outpatient visit 5 minutes [facility] Start: 05-30-2017 End: 05-30-2017 Phone Encounter Kyra Nguyen [facility] Start: 05-24-2017 End: 05-24-2017 Office outpatient visit 25 minutes [facility] Start: 05-15-2017 End: 05-15-2017 Office outpatient visit 15 minutes [facility] Start: 02-08-2017 End: 02-08-2017 Office outpatient visit 15 minutes Ky[facility] Start: 06-27-2016 End: 06-27-2016 Phone Encounter Kyra Nguyen [facility] Start: 06-23-2016 End: 06-23-2016 Office outpatient visit 25 minutes [facility] Start: 05-30-2016 End: 05-30-2016 Office outpatient visit 15 minutes [facility] Start: 12-22-2015 End: 12-22-2015 Office outpatient visit 25 minutes Kyra [facility] Start: 09-18-2015 End: 09-20-2015 Office outpatient visit 25 minutes Ky[facility] Start: 07-16-2015 End: 07-16-2015 Phone Encounter Ky[facility] Nguyen [facility] Start: 07-16-2015 End: 07-16-2015 Office outpatient visit 25 minutes [facility] Start: 07-09-2015 End: 07-09-2015 Office outpatient visit 15 minutes [facility] Start: 06-15-2015 End: 06-15-2015 Office outpatient visit 15 minutes [facility] Start: 05-13-2015 End: 05-14-2015 Office outpatient visit 25 minutes [facility] Procedures Date Procedure Procedure Detail Performing Clinician Start: 06-27-2019 Antibody screen Plan of Treatment Date Care Activity Detail Author Start: 09-10-2018 Procedure Education Eprescribed prescriptions (G8553) [facility] Work Phone: Start: 09-10-2018 Provider Instructions for Treatment [facility] Work Phone: Start: 06-26-2018 Cobalamin (Vitamin B12) mass conc VITAMIN B12 AND FOLATES (98016) [facility] Work Phone: Start: 06-21-2018 Blood count reticulocyte automated RETICULOCYTE COUNT ([id number]) [facility] Work Phone: Payers Date Payer Category Payer Policy ID Unknown Caity BC/BS Social History Date Type Detail Facility Most Recent Primary Occupation Former smo ker [facility] Work Phone: Instructions Name Dates Details Diabetes type 2, uncontrolle d : How to access health information online Indication:Diabetes type 2, uncontrolled Diabetes type 2, uncontrolle d : How to access health information online - Detail Indication:Diabetes type 2, uncontrolled Diabetes type 2, uncontrolle d : Patient Instructions Indication:Diabetes type 2, uncontrolled Diabetes mellitus type II, c ontrolled, with no complications (Renamed from Controlled type 2 diabetes mellitus without complication) : How to access health information online Indication:Diabetes mellitus type II, controlled, with no complications (Renamed from Controlled type 2 diabetes mellitus without complication) Diabetes mellitus type II, c ontrolled, with no complications (Renamed from Controlled type 2 diabetes mellitus without complication) : How to access health information online - Detail Indication:Diabetes mellitus type II, controlled, with no complications (Renamed from Controlled type 2 diabetes mellitus without complication) Diabetes mellitus type II, c ontrolled, with no complications (Renamed from Controlled type 2 diabetes mellitus without complication) : Patient Instructions Indication:Diabetes mellitus type II, controlled, with no complications (Renamed from Controlled type 2 diabetes mellitus without complication) Non-smoker : How to access h ealth information online Indication:Non-smoker Non-smoker : How to access h ealth information online - Detail Indication:Non-smoker Non-smoker : Patient Instruc tions Indication:Non-smoker BMI 34.0-34.9,adult : How to access health information online Indication:BMI 34.0-34.9,adult BMI 34.0-34.9,adult : How to access health information online - Detail Indication:BMI 34.0-34.9,adult BMI 34.0-34.9,adult : Patien t Instructions Indication:BMI 34.0-34.9,adult Hives : How to access health information online Indication:Hives Hives : How to access health information online - Detail Indication:Hives Hives : Patient Instructions Indication:Hives Chronic pain of both lower e xtremities : Patient Instructions Indication:Chronic pain of both lower extremities Acute drug-induced gout of k nee : How to access health information online Indication:Acute drug-induced gout of knee Acute drug-induced gout of k nee : How to access health information online - Detail Indication:Acute drug-induced gout of knee Acute drug-induced gout of k nee : Patient Instructions Indication:Acute drug-induced gout of knee Knee pain, acute, left : How to access health information online Indication:Knee pain, acute, left Knee pain, acute, left : How to access health information online - Detail Indication:Knee pain, acute, left Knee pain, acute, left : Pat ient Instructions Indication:Knee pain, acute, left Knee Pain (Renamed from Gona lgia) : How to access health information online Indication:Knee Pain (Renamed from Gonalgia) Knee Pain (Renamed from Gona lgia) : How to access health information online - Detail Indication:Knee Pain (Renamed from Gonalgia) Knee Pain (Renamed from Gona lgia) : Patient Instructions Indication:Knee Pain (Renamed from Gonalgia) Hypertension, benign : How t o access health information online Indication:Hypertension, benign Hypertension, benign : How t o access health information online - Detail Indication:Hypertension, benign Hypertension, benign : Patie nt Instructions Indication:Hypertension, benign Name Dates Details How to access health informa tion online Indication:Diabetes type 2, uncontrolled Start:10-Sep-2018 Instruction Type:Patient Education How to access health informa tion online - Detail Indication:Diabetes type 2, uncontrolled Start:10-Sep-2018 Instruction Type:Patient Education Patient Instructions Indication:Diabetes type 2, uncontrolled Start:10-Sep-2018 Instruction Type:Provider Instructions for Treatment How to access health informa tion online Indication:Diabetes mellitus type II, controlled, with no complications (Renamed from Controlled type 2 diabetes mellitus without complication) Start:30-Aug-2017 Instruction Type:Patient Education How to access health informa tion online - Detail Indication:Diabetes mellitus type II, controlled, with no complications (Renamed from Controlled type 2 diabetes mellitus without complication) Start:30-Aug-2017 Instruction Type:Patient Education Patient Instructions Indication:Diabetes mellitus type II, controlled, with no complications (Renamed from Controlled type 2 diabetes mellitus without complication) Start:30-Aug-2017 Instruction Type:Provider Instructions for Treatment How to access health informa tion online Indication:Non-smoker Start:24-May-2017 Instruction Type:Patient Education How to access health informa tion online - Detail Indication:Non-smoker Start:24-May-2017 Instruction Type:Patient Education Patient Instructions Indication:Non-smoker Start:24-May-2017 Instruction Type:Provider Instructions for Treatment How to access health informa tion online Indication:BMI 34.0-34.9,adult Start:15-May-2017 Instruction Type:Patient Education How to access health informa tion online - Detail Indication:BMI 34.0-34.9,adult Start:15-May-2017 Instruction Type:Patient Education Patient Instructions Indication:BMI 34.0-34.9,adult Start:15-May-2017 Instruction Type:Provider Instructions for Treatment How to access health informa tion online Indication:Hives Start:08-Feb-2017 Instruction Type:Patient Education How to access health informa tion online - Detail Indication:Hives Start:08-Feb-2017 Instruction Type:Patient Education Patient Instructions Indication:Hives Start:08-Feb-2017 Instruction Type:Provider Instructions for Treatment How to access health informa tion online Indication:Diabetes mellitus type II, controlled, with no complications (Renamed from Controlled type 2 diabetes mellitus without complication) Start:23-Jun-2016 Instruction Type:Patient Education How to access health informa tion online - Detail Indication:Diabetes mellitus type II, controlled, with no complications (Renamed from Controlled type 2 diabetes mellitus without complication) Start:23-Jun-2016 Instruction Type:Patient Education Patient Instructions Indication:Diabetes mellitus type II, controlled, with no complications (Renamed from Controlled type 2 diabetes mellitus without complication) Start:23-Jun-2016 Instruction Type:Provider Instructions for Treatment Patient Instructions Indication:Chronic pain of both lower extremities Start:30-May-2016 Instruction Type:Provider Instructions for Treatment How to access health informa tion online Indication:Diabetes mellitus type II, controlled, with no complications (Renamed from Controlled type 2 diabetes mellitus without complication) Start:22-Dec-2015 Instruction Type:Patient Education How to access health informa tion online - Detail Indication:Diabetes mellitus type II, controlled, with no complications (Renamed from Controlled type 2 diabetes mellitus without complication) Start:22-Dec-2015 Instruction Type:Patient Education Patient Instructions Indication:Diabetes mellitus type II, controlled, with no complications (Renamed from Controlled type 2 diabetes mellitus without complication) Start:22-Dec-2015 Instruction Type:Provider Instructions for Treatment How to access health informa tion online Indication:Acute drug-induced gout of knee Start:18-Sep-2015 Instruction Type:Patient Education How to access health informa tion online - Detail Indication:Acute drug-induced gout of knee Start:18-Sep-2015 Instruction Type:Patient Education Patient Instructions Indication:Acute drug-induced gout of knee Start:18-Sep-2015 Instruction Type:Provider Instructions for Treatment How to access health informa tion online Indication:Knee pain, acute, left Start:16-Jul-2015 Instruction Type:Patient Education How to access health informa tion online - Detail Indication:Knee pain, acute, left Start:16-Jul-2015 Instruction Type:Patient Education Patient Instructions Indication:Knee pain, acute, left Start:16-Jul-2015 Instruction Type:Provider Instructions for Treatment How to access health informa tion online Indication:Knee Pain (Renamed from Gonalgia) Start:09-Jul-2015 Instruction Type:Patient Education How to access health informa tion online - Detail Indication:Knee Pain (Renamed from Gonalgia) Start:09-Jul-2015 Instruction Type:Patient Education Patient Instructions Indication:Knee Pain (Renamed from Gonalgia) Start:09-Jul-2015 Instruction Type:Provider Instructions for Treatment How to access health informa tion online Indication:Hypertension, benign Start:15-Jun-2015 Instruction Type:Patient Education How to access health informa tion online - Detail Indication:Hypertension, benign Start:15-Jun-2015 Instruction Type:Patient Education Patient Instructions Indication:Hypertension, benign Start:15-Jun-2015 Instruction Type:Provider Instructions for Treatment How to access health informa tion online Indication:Hypertension, benign Start:13-May-2015 Instruction Type:Patient Education How to access viaForensics online - Detail Indication:Hypertension, benign Start:13-May-2015 Instruction Type:Patient Education Patient Instructions Indication:Hypertension, benign Start:13-May-2015 Instruction Type:Provider Instructions for Treatment Summary Purpose Family History No Family History Records FoundNo Family History Records FoundNo Family History Records FoundNo Family History Records Found Advance Directives No Advanced Directives Records FoundNo Advanced Directives Records FoundNo Advanced Directives Records FoundNo Advanced Directives Records Found Hospital Course Note HNO ID: [id number] Author: Jennifer cummins (Infant And Toddler Teacher.Pr Manager) MARIO Soni Service: Electrophysiology Author Type: Nurse Specialist Type: Discharge Summary Filed: 06/28/2019 12:41 PM Note Text: DISCHARGE SUMMARY PATIENT NAME: Michael Marie Jr. Code Status: Not on file Highest Readmission Risk Score: 10 The 30 day readmissions risk score is derived from an internally validated risk model which evaluates patient level characteristics, utilization history, medication orders and lab results up until the day of discharge. Patients with a score of 40 or above are considered highest risk for readmission. Specific patient level drivers will be listed at the bottom of the summary. Admission Information Admission Information ADMIT DATE: 06/27/2019 DISCHARGE DATE: 06/28/2019 MY DOCTORS AND MEDICAL TEAM: My Main Hospital Doctor: Jhonny Phelps Primary Care Provider: Ravin(Hist) Luis (Inactive) My Medical Team Members: Treatment Team: Attending Provider: Jhonny Love (more content not included)... Additional Source Comments (unrecognized sect ion and content) No Status Records FoundNo Status Records FoundNo Status Records FoundNo Status Records Found INFORMATION SOURCE (unrecogn ized section and content) DATE CREATED AUTHOR AUTHOR'S ORGANIZ ATION 09/18/2019 [facility] DATE CREATED AUTHOR AUTHOR'S ORGANIZ ATION 09/27/2019 [facility] DATE CREATED AUTHOR AUTHOR'S ORGANIZ ATION 03/12/2020 [facility] FOR RECORDS PERTAINING TO PATIENTS WHO ARE OR HAVE BEEN ENROLLED IN A CHEMICAL DEPENDENCY/SUBSTANCEABUSE PROGRAM, SOME INFORMATION MAY BE OMITTED. This clinical summary was aggregated from multiple sources. Caution should be exercised in using it in the provision of clinical care. This summary normalizes information from multiple sources, and as a consequence, information in this document may materially change the coding, format and clinical context of patient data. In addition, data may be omitted in some cases. CLINICAL DECISIONS SHOULD BE BASED ON THE PRIMARY CLINICAL RECORDS. [facility]. provides no warranty or guarantee of the accuracy or completeness of information in this document.
[2023-10-06 12:54] LABS: Anion Gap 8 (5-15); BUN 10 mg/dL (7-18); BUN/Creat Ratio 13.6 RATIO (10-20); Calcium,Total 9.7 mg/dL (8.5-10.1); Chloride 103 mmol/L (98-107); Creatinine, Serum 0.73 mg/dL (0.70-1.30); EST Glomerular Filtration Rate 115 mL/min (>60); Est Glom Filt Rate - Afr Amer 139 mL/min (>60); Glucose 151 mg/dL (74-106); Potassium 5.1 mmol/L (3.5-5.1); Sodium Level 139 mmol/L (136-145)
== END | disposition home or self-care (01) ==
LOC: BIMLAB 10:38
PROVIDERS: PCP Internal Medicine; Referring Provider Internal Medicine; Visit Provider Internal Medicine
DX: I10 Essential (primary) hypertension (principal)
CPT/HCPCS: 36415; 80048

== ENCOUNTER → 2024-08-02 | Outpatient (CLI) | payer OTHER, SELFPAY ==
[2024-08-02 12:40] LABS: Absolute Lymphocyte Count 1.25 X10^3/uL (0.83-4.51); Absolute Neutrophil Count 3.6 X10^3/uL (2.0-7.7); Basophil# 0.02 X10^3/uL; Basophil% 0.4 % (0-1); Eosinophil# 0.16 X10^3/uL; Eosinophils% 2.8 % (0-5); Hematocrit 43.1 % (40-54); Hemoglobin 14.1 g/dL (13.0-16.5); Lymphocyte # 1.25 X10^3/ul (0.83-4.51); Mean Corp Hgb Conc 32.7 g/dL (32-36); Mean Corpuscular Hgb 32.7 pg (27.0-32.0); Mean Platelet Vol. 10.5 fl (6.2-12.0); Monocyte% 10.6 % (0-10); NRBC Flagged by Analyzer 0 % (0-5); Neutrophil # 3.58 X10^3/uL (2.7-7.7); Neutrophil % 63.1 % (47-70); Platelet Count 300 K/mm3 (150-450); RBC Distribution Width CV 12.5 % (11.6-14.6); RBC Distribution Width SD 46.5 fl (35.1-43.9); Red Blood Count 4.31 M/mm3 (4.6-6.2); White Blood Count 5.7 K/mm3 (4.4-11.0)
[2024-08-02 13:26] LABS: ALB/GLOB Ratio 1.1 RATIO (0.9-2.4); AST(SGOT) 14 U/L (15-37); Alanine Aminotransfer ALT/SGPT 27 U/L (16-61); Albumin, Serum 3.7 g/dL (3.2-5.0); Alkaline Phosphatase 73 U/L (45-117); Anion Gap 6 (5-15); BUN 7 mg/dL (7-18); BUN/Creat Ratio 10.4 RATIO (10-20); Chloride 104 mmol/L (98-107); Cholesterol 173 mg/dL (200); Creatinine, Serum 0.67 mg/dL (0.70-1.30); EST Glomerular Filtration Rate 126 mL/min (>60); Est Glom Filt Rate - Afr Amer 153 mL/min (>60); Globulin 3.5 g/dL (2.2-4.2); Glucose 142 mg/dL (74-106); High Density Lipoprotein 64 mg/dL; PSA,Total - Annual Screen 1.18 ng/mL (0.00-4.00); Potassium 4.6 mmol/L (3.5-5.1); Protein, Total 7.2 g/dL (6.4-8.2); Sodium Level 136 mmol/L (136-145); Triglycerides 243 mg/dL; Very Low Density Lipoprotein 49 mg/dL (5-40)
== END | disposition home or self-care (01) ==
LOC: BIMLAB 10:12
PROVIDERS: PCP Internal Medicine; Referring Provider Internal Medicine; Visit Provider Internal Medicine
DX: I10 Essential (primary) hypertension (principal); Z13.29 Encounter for screening for other suspected endocrine disorder
CPT/HCPCS: 36415; 80053; 80061; 84153; 85025; G0103

== ENCOUNTER → 2024-10-15 | Outpatient (CLI) | payer OTHER, SELFPAY ==
--- NOTE | 2024-10-15 13:56 | ECHOCS_ITS ---
Version 2 Reason For Study: ATRIAL FIBRILLATION Procedure This was a 2D Doppler, Color Flow transthoracic echocardiogram. Contrast injection was performed. The study was technically difficult. Exam performed in department. Left Ventricle Normal LV size. Mild concentric left ventricular hypertrophy. Left ventricular systolic function is normal. The left ventricular ejection fraction is 65 %. No regional wall motion abnormalities noted. Right Ventricle Normal RV size. Normal systolic function. Atria Normal left atrium. Normal right atrium. Mitral Valve Normal mitral valve. Tricuspid Valve Normal tricuspid valve. Mild (1+) tricuspid valve insufficiency. Pulmonary artery systolic pressure is 35 mmHg. Aortic Valve Trisinus/trileaflet aortic valve. Pulmonic Valve Normal pulmonic valve. Great Vessels Normal aortic root. The pulmonary artery is normal size. Normal inferior vena cava. Pericardium/Pleural No pericardial effusion. Medication 22 gauge I.V. with prn adaptor inserted into left arm. Diluted definity 2ml given slow IV push to enhance endocardial definition. MMode/2D Measurements & Calculations LVIDd: 5.3 cm IVSd: 1.3 cm LVOT diam: 1.9 cm LVIDs: 3.1 cm LVPWd: 1.2 cm RVDd: 3.8 cm FS: 40.5 % LVOT area: 2.9 cm2 asc Aorta Diam: 3.2 cm LAV(MOD-bp): 58.9 ml LVAd ap4: 33.1 cm2 LAV(MOD-bp) Indexed: 26.2 ml/m2 LVLd ap4: 8.3 cm LAV(MOD-sp2): 61.9 ml EDV(MOD-sp4): 106.0 ml LAV(MOD-sp4): 57.4 ml EDV(sp4-el): 112.2 ml LVAs ap4: 19.9 cm2 LVLs ap4: 7.2 cm ESV(MOD-sp4): 45.0 ml ESV(sp4-el): 46.7 ml EF(MOD-sp4): 57.5 % EF(sp4-el): 58.4 % LVAd ap2: 28.6 cm2 SV(MOD-sp4): 61.0 ml SV(MOD-sp2): 47.7 ml LVLd ap2: 8.6 cm SI(MOD-sp4): 27.1 ml/m2 SI(MOD-sp2): 21.2 ml/m2 EDV(MOD-sp2): 77.6 ml EDV(sp2-el): 81.1 ml LVAs ap2: 16.1 cm2 LVLs ap2: 7.1 cm ESV(MOD-sp2): 29.9 ml ESV(sp2-el): 30.8 ml EF(MOD-sp2): 61.5 % SV(sp4-el): 65.5 ml Ao sinus diam: 2.[address] Junction: 2.6 cm LA dimension(2D): 3.9 cm LA A4 area: 21.1 cm2 RA A4 area: 11.8 cm2 TAPSE: 2.0 cm Time Measurements MV dec time: 0.24 sec Doppler Measurements & Calculations MV E max laz: 98.6 cm/sec Lat Peak E' Laz: 9.6 cm/sec Med Peak E' Laz: 7.8 cm/sec MV A max laz: 91.3 cm/sec E/E' lat: 10.2 E/E' med: 12.6 MV E/A: 1.1 MV dec slope: 411.1 cm/sec2 Ao V2 max: 240.8 cm/sec PA V2 max: 135.6 cm/sec Ao max P.2 mmHg Ao V2 mean: 174.7 cm/sec Ao mean P.6 mmHg Ao V2 VTI: 44.1 cm TR max laz: 286.6 cm/sec TR max P.9 mmHg ECHO/Echo Complete W/ Contrast Interpretation Summary Normal LV size. Left ventricular systolic function is normal. The left ventricular ejection fraction is 65 %. Mild concentric left ventricular hypertrophy. Pulmonary artery systolic pressure is 35 mmHg. Structurally normal valves. Ordering Physician: Arcadio Davidson Referring Physician: Ravin Granda Performed By: Bozena Bell, GRAEME
[2024-10-15 15:46] LABS: Anion Gap 8 (5-15); BUN 9 mg/dL (7-18); BUN/Creat Ratio 9.2 RATIO (10-20); Calcium,Total 9.8 mg/dL (8.5-10.1); Chloride 97 mmol/L (98-107); Creatinine, Serum 0.98 mg/dL (0.70-1.30); EST Glomerular Filtration Rate 82 mL/min (>60); Est Glom Filt Rate - Afr Amer 99 mL/min (>60); Glucose 145 mg/dL (74-106); Potassium 4.3 mmol/L (3.5-5.1); Sodium Level 134 mmol/L (136-145)
== END | disposition home or self-care (01) ==
PROVIDERS: Physician Assistant Medical; PCP Internal Medicine; Referring Provider Internal Medicine Cardiovascular Disease; Visit Provider Internal Medicine Cardiovascular Disease
DX: Z98.890 Other specified postprocedural states (principal); I10 Essential (primary) hypertension
CPT/HCPCS: 36415; 80048; 93306; Q9957; A4216; C8929

== ENCOUNTER → 2024-11-14 | Outpatient (CLI) | payer OTHER, SELFPAY ==
[2024-11-14 15:33] LABS: Anion Gap 9 (5-15); BUN 8 mg/dL (7-18); BUN/Creat Ratio 10.5 RATIO (10-20); Calcium,Total 9.7 mg/dL (8.5-10.1); Chloride 97 mmol/L (98-107); Creatinine, Serum 0.76 mg/dL (0.70-1.30); EST Glomerular Filtration Rate 110 mL/min (>60); Est Glom Filt Rate - Afr Amer 133 mL/min (>60); Glucose 196 mg/dL (74-106); Potassium 3.9 mmol/L (3.5-5.1); Sodium Level 132 mmol/L (136-145)
== END | disposition home or self-care (01) ==
LOC: BIMLAB 13:58
PROVIDERS: PCP Internal Medicine; Referring Provider Physician Assistant Medical; Visit Provider Physician Assistant Medical
DX: I10 Essential (primary) hypertension (principal)
CPT/HCPCS: 36415; 80048

== ENCOUNTER → 2025-04-23 | Outpatient (CLI) | payer MEDICARE, SELFPAY ==
[2025-04-23 12:20] LABS: Hematocrit 41.4 % (40-54); Hemoglobin 13.6 g/dL (13.0-16.5); Immature Granulocytes Count 0.100 X10^3/uL (0.0-0.0); Mean Corp Hgb Conc 32.9 g/dL (32-36); Mean Corpuscular Volume 98.8 fL (80-94); Mean Platelet Vol. 10.1 fl (6.2-12.0); NRBC Flagged by Analyzer 0 % (0-5); Platelet Count 309 K/mm3 (150-450); RBC Distribution Width CV 12.8 % (11.6-14.6); RBC Distribution Width SD 46.8 fl (35.1-43.9); Red Blood Count 4.19 M/mm3 (4.6-6.2); White Blood Count 6.4 K/mm3 (4.4-11.0)
[2025-04-23 12:48] LABS: AST(SGOT) 26 U/L (<=37); Alanine Aminotransfer ALT/SGPT 29 U/L (<=46); Albumin, Serum 4.4 g/dL (3.4-4.8); Alkaline Phosphatase 76 U/L (40-129); Anion Gap 16 (5-15); BUN 9 mg/dL (4-19); BUN/Creat Ratio 12.8 RATIO (10-20); Calcium,Total 9.7 mg/dL (7.6-11.0); Carbon Dioxide 24.0 mmol/L (21.0-32.0); Chloride 98 mmol/L (98-108); Globulin 2.9 g/dL (2.2-4.2); Glucose 149 mg/dL (70-99); PSA,Total- Diagnostic 1.24 ng/mL (0.00-4.00); Potassium 4.7 mmol/L (3.3-5.1); Uric Acid 5.6 mg/dL (3.5-7.2)
== END | disposition home or self-care (01) ==
PROVIDERS: PCP Internal Medicine; Referring Provider Internal Medicine; Visit Provider Internal Medicine
DX: I10 Essential (primary) hypertension (principal); N40.0 Benign prostatic hyperplasia without lower urinary tract symptoms; M10.9 Gout, unspecified
CPT/HCPCS: 36415; 80053; 84153; 84550; 85025

== ENCOUNTER → 2025-04-25 | Outpatient (CLI) | payer MEDICARE, SELFPAY ==
[2025-04-25 13:16] LABS: Anion Gap 16 (5-15); BUN 10 mg/dL (4-19); BUN/Creat Ratio 15.4 RATIO (10-20); Calcium,Total 9.5 mg/dL (7.6-11.0); Carbon Dioxide 20.8 mmol/L (21.0-32.0); Chloride 95 mmol/L (98-108); Glucose 138 mg/dL (70-99); Potassium 4.6 mmol/L (3.3-5.1)
[2025-04-28 22:59] LABS: BETA-HYDROXYBUTYRATE 0.2 mmol/L (0.0-0.3)
== END | disposition home or self-care (01) ==
PROVIDERS: PCP Internal Medicine; Referring Provider Internal Medicine; Visit Provider Internal Medicine
DX: E87.8 Other disorders of electrolyte and fluid balance, not elsewhere classified (principal); E11.69 Type 2 diabetes mellitus with other specified complication
CPT/HCPCS: 36415; 80048; 82010

== ENCOUNTER → 2025-05-01 | Outpatient (CLI) | payer MEDICARE, SELFPAY ==
[2025-05-01 21:31] LABS: Mucous, Urine 0 SEEN /hpf (<or=2+)
[2025-05-01 21:37] LABS: Color, Urine Yellow (Yellow); Glucose, Dipstick Normal (Normal); Ketone-Dipstick Negative (Negative); Leukocyte Esterase-Dipstick Negative /ul (Negative); Nitrite-Dipstick Negative (Negative); Occult Blood-Urine Negative /ul (Negative); Protein-Dipstick 15 mg/dl (Negative); Specific Gravity, Urine 1.010 (1.002-1.030); Urine Bilirubin Dipstick Negative (Negative)
[2025-05-01 22:08] LABS: Red Blood Cells-Urine 0-5 SEEN /hpf (0-5); Squamous Epithelial Cells - UA 0-5 SEEN /hpf (0-5)
== END | disposition home or self-care (01) ==
LOC: LABSPEC 16:21
PROVIDERS: PCP Internal Medicine; Referring Provider Internal Medicine; Visit Provider Internal Medicine
DX: E87.8 Other disorders of electrolyte and fluid balance, not elsewhere classified (principal)
CPT/HCPCS: 81001

== ENCOUNTER → 2025-06-26 | Outpatient (CLI) | payer MEDICARE, SELFPAY ==
--- NOTE | 2025-06-26 14:37 | CDU_ITS ---
Reason For Study Reason For Study: DIZZINESS Rt. Velocities/BP Lt. Velocities/BP Prox CCA 81.5/8.4 cm/sec. Prox CCA 124.0/14.4 cm/sec. Mid CCA 138.1/19.4 cm/sec. Mid CCA 87.5/10.8 cm/sec. Dist CCA 136.3/17.5 cm/sec. Dist CCA 87.5/16.3 cm/sec. Prox ICA 85.4/14.5 cm/sec. Prox ICA 85.7/18.1 cm/sec. Mid ICA 112.5/28.5 cm/sec. Mid ICA 113.1/21.7 cm/sec. Dist ICA 80.9/22.6 cm/sec. Dist ICA 70.2/17.5 cm/sec. Rt. ICA/CCA = 0.8. Lt. ICA/CCA = 1.3. Prox ECA 156.3/13.9 cm/sec. Prox ECA 133.2/12.6 cm/sec. Rt. Vert. 56.7/12.7 cm/sec. Lt. Vert. 34.8/8.5 cm/sec. Right Extracranial There is homogeneous, smooth atherosclerotic plaque noted in the right common carotid artery. There is heterogeneous, irregular atherosclerotic plaque noted in the right internal carotid artery. There is intimal thickening but no significant atherosclerotic plaque noted in the right external carotid artery. Antegrade flow is noted in the right vertebral artery. Left Extracranial There is homogeneous, smooth atherosclerotic plaque noted in the left common carotid artery. There is heterogeneous, irregular atherosclerotic plaque noted in the left internal carotid artery. There is intimal thickening but no significant atherosclerotic plaque noted in the left external carotid artery. Antegrade flow is noted in the left vertebral artery. Procedure Carotid Duplex [id number]. This is a Carotid Duplex examination using B-mode, color flow and specral Doppler. The exam was diagnostic. Exam performed in department. VL/Carotid Duplex Ultrasound Interpretation Summary Mild (<50%) stenosis right extracranial internal carotid. Mild (<50%) stenosis left extracranial internal carotid. Flow within the vertebral arteries is antegrade bilaterally. Ordering Physician: Maximus Guerra Referring Physician: Ravin Granda Performed By: Joseph Olea RVT
== END | disposition home or self-care (01) ==
LOC: CVS 14:36
PROVIDERS: PCP Internal Medicine; Referring Provider Nurse Practitioner Family; Visit Provider Nurse Practitioner Family
DX: I65.22 Occlusion and stenosis of left carotid artery (principal); R42 Dizziness and giddiness
CPT/HCPCS: 93880